=== PATIENT | male | born 2000 | race Caucasian/White ===

== ENCOUNTER 2024-11-20 13:12 | Emergency (ER) | payer SELFPAY ==
[2024-11-20] MEDS ORDERED: Ibuprofen 800 MG TAB ONE (13:50)
[2024-11-20] MEDS ORDERED: Acetaminophen 325 MG TAB ONE (13:51)
== END 2024-11-20 14:34 | disposition home or self-care (01) ==
LOC: CSHERS 13:12
DX: S06.0XAA Concussion with loss of consciousness status unknown, initial encounter (principal); R29.700 NIHSS score 0; V89.2XXA Person injured in unspecified motor-vehicle accident, traffic, initial encounter
CPT/HCPCS: 70450